=== PATIENT | female | born 1950 | race Caucasian/White ===

== ENCOUNTER 2018-02-20 11:12 | Emergency (ER) | payer OTHER ==
[2018-02-20] MEDS ORDERED: Ibuprofen 400 MG Tab PO ONE (11:59)
[2018-02-20] MEDS ORDERED: oxyCODONE 5 MG Tab PO ONE (12:19)
--- NOTE | 2018-02-20 12:25 | EDM.PDOC ---
ED HPI GENERAL MEDICAL PROBLEM - General Chief Complaint: Upper Extremity Injury/Pain Stated Complaint: INJURED LT WRIST Time Seen by Provider: 02/20/18 11:45 Source of Information: Reports: Patient - History of Present Illness INITIAL COMMENTS - FREE TEXT/NARRATIVE: 67 yo hx of [place] present with L wrist pain after onto outstretched hand Was playing tennis with grandson Fell forward onto left hand Instand pain in the wrist, radiates into hand, it is an ache, it is severe, it is worse with movement of the wrist. She denies headstrike or other injury No blood thinners. Otherwise feeling well Onset: Today, Sudden Duration: Hour(s): Location: Reports: Upper Extremity, Left Quality: Reports: Ache Severity: Moderate Improves with: Reports: Rest Worsens with: Reports: Movement Context: Reports: Exercise Treatments [employer]: Reports: Acetaminophen - Related Data Allergies Allergy/AdvReac Type Severity Reaction Status Date / Time metoclopramide [From Reglan] Allergy Airway Verified 02/20/18 11:32 Tightness prochlorperazine Allergy Airway Verified 02/20/18 11:32 [From Compazine] Tightness Home Meds: Home Meds Adalimumab [Humira Pen] 02/20/18 [History] Alendronate [Fosamax] 02/20/18 [History] Venlafaxine [Effexor] 02/20/18 [History] ZOLMitriptan [Zomig] 02/20/18 [History] oxyCODONE 5 mg PO Q4H PRN #6 tab 02/20/18 [Rx] Past Medical History Gastrointestinal History: Reports: Inflammatory Bowel Disease Oncologic (Cancer) History: Reports: Leukemia - Past Surgical History GI Surgical History: Reports: Small Bowel Musculoskeletal Surgical History: Reports: Arthroscopic Knee Social & Family History - Tobacco Use Smoking Status *Q: Never Smoker Review of Systems - Review of Systems Review Of Systems: See Below Constitutional: Reports: No Symptoms Eyes: Reports: No Symptoms Ears: Reports: No Symptoms Nose: Reports: No Symptoms Mouth/Throat: Reports: No Symptoms Respiratory: Reports: No Symptoms Cardiovascular: Reports: No Symptoms GI/Abdominal: Reports: No Symptoms Genitourinary: Reports: No Symptoms Musculoskeletal: Reports: Joint Pain Skin: Reports: No Symptoms Neurological: Reports: No Symptoms Psychiatric: Reports: No Symptoms ED EXAM, GENERAL - Physical Exam Exam: See Below Exam Limited By: No Limitations General Appearance: Alert Ears: Normal External Exam Nose: Normal Inspection Head: Atraumatic, Normocephalic Respiratory/Chest: No Respiratory Distress, Lungs Clear Cardiovascular: Regular Rate, Rhythm GI/Abdominal: Soft, Non-Tender (Female) Exam: Deferred Back Exam: Normal Inspection Extremities: Other (left wrist with mild swelling, no obvious deformity, no anatomical snuff box tenderness, distal CSM intact) Neurological: Alert, Oriented Psychiatric: Normal Affect Skin Exam: Warm, Dry Course - Vital Signs Last Recorded V/S: Last Vital Signs Temp 35.9 C 02/20/18 11:39 Pulse 66 02/20/18 11:39 Resp 14 02/20/18 11:39 BP 138/84 02/20/18 11:39 Pulse Ox 98 02/20/18 11:39 - Orders/Labs/Meds Orders: Active Orders 24 hr Category Date Time Status Wrist Comp Min 3V Lt [CR] Stat Exams 02/20/18 12:22 Taken Wrist Comp Min 3V Rt [CR] Stat Exams 02/20/18 11:57 Stop Req Meds: Medications Discontinued Medications Generic Name Dose Route Start Last Admin Trade Name Freq PRN Reason Stop Dose Admin Ibuprofen 400 mg 02/20/18 11:59 02/20/18 12:26 Motrin PO 02/20/18 12:00 400 mg ONETIME ONE Administration Oxycodone HCl 5 mg 02/20/18 12:19 02/20/18 12:24 Oxycodone PO 02/20/18 12:20 5 mg ONETIME ONE Administration Departure - Departure Time of Disposition: 13:12 Disposition: Home, Self-Care 01 Clinical Impression: Fracture of radius - Discharge Information *PRESCRIPTION DRUG MONITORING PROGRAM REVIEWED*: No *COPY OF PRESCRIPTION DRUG MONITORING REPORT IN PATIENT JOLANTA: No Prescriptions: oxyCODONE 5 mg PO Q4H PRN #6 tab PRN Reason: Pain Instructions: Forearm Fracture, [id number] Referrals: PCP,None [Primary Care Provider] - Forms: ED Department Discharge Additional Instructions: You have a fracture of your distal radius (wrist) You need to follow up with an orthopedist when you get back to the [facility] For pain, take scheduled ibuprofen and tylenol as written on bottle. Used the prescribed pain medication in addition to this as need Return to an ER for significantly worsening pain or change in sensation in your hand. - Problem List & Annotations (1) Distal radius fracture, left SNOMED Code(s): 462986004 Code(s): S52.502A - UNSP FRACTURE OF THE LOWER END OF LEFT RADIUS, INIT Status: Acute Current Visit: Yes - My Orders Last 24 Hours: My Active Orders 02/20/18 11:57 Wrist Comp Min 3V Rt [CR] Stat 02/20/18 12:22 Wrist Comp Min 3V Lt [CR] Stat - Assessment/Plan Last 24 Hours: My Active Orders 02/20/18 11:57 Wrist Comp Min 3V Rt [CR] Stat 02/20/18 12:22 Wrist Comp Min 3V Lt [CR] Stat Assessment:: 67 yo present with left fall on outstretched hand XR left wrist with distal radius fracture - no displaced, no reduction needed No other appreciable trauma on exam or head strike to warrant further imaging Distal CSM of the left hand is intact Placing splint, sling, pain control with apap, ibuprofen, prn oxycodone Visiting from [facility], will f/u with Ortho when returns home
--- NOTE | 2018-02-22 13:18 | CR ---
Wrist Comp Min 3V Lt CLINICAL HISTORY: Fall, pain FINDINGS: Patient is a comminuted minimally displaced fracture the distal radius. Ulna is intact. The re is involvement of the radial articular surface. There are severe osteoarthritic changes in the fir st and second carpometacarpal joints. 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
== END 2018-02-20 13:26 | disposition home or self-care (01) ==
LOC: JP.ED 11:12
DX: S52.502A Unspecified fracture of the lower end of left radius, initial encounter for closed fracture (principal); X50.9XXA Other and unspecified overexertion or strenuous movements or postures, initial encounter; Z88.8 Allergy status to other drugs, medicaments and biological substances
CPT/HCPCS: 73110; 99284; A9270